=== PATIENT | male | born 1975 | race Hispanic/Latino ===

== ENCOUNTER 2017-12-14 15:36 | Emergency (ER) | payer BC, OTHER ==
[~2017-12-14] VITALS: Ht 185.4 cm; Wt 126.6 kg
[~2017-12-14 15:36] MED LIST: ESIDRIX25 MG PO; GLIMEPIRIDE2 MG PO; LEVOTHYROXINE100 MC1 IV; LEVOTHYROXINE75 MCG PO; LOVASTATIN40 MG PO; VERAPAMIL ER240 M1; ZESTRIL20 MG PO
[2017-12-14 16:18] LABS: BASOPHILS # (AUTO) 0.1 (0.0-0.1); BASOPHILS % 0.9 % (0.0-1.0); EOSINOPHILS # (AUTO) 0.1 (0.0-0.4); EOSINOPHILS % 2.2 % (0.0-6.0); HEMOGLOBIN 14.8 g/dL (14.0-18.0); LYMPHOCYTES # (AUTO) 1.9 (1.0-3.2); LYMPHOCYTES % 35.5 % (18.0-39.1); MEAN CORPUSCULAR HEMOGLOBIN 28.6 pg (28-32); MEAN CORPUSCULAR HGB CONC 32.9 g/dL (31-35); MEAN CORPUSCULAR VOLUME 86.9 fL (81-99); MONOCYTES # (AUTO) 0.6 (0.2-0.8); MONOCYTES % 11.2 % (4.4-11.3); NEUTROPHILS # (AUTO) 2.7 (2.1-6.9); NEUTROPHILS % 49.8 % (38.7-80.0); PLATELET COUNT 262 x10e3/uL (140-360); RED BLOOD COUNT 5.18 x10e6/uL (4.3-5.7); RED CELL DISTRIBUTION WIDTH 13.8 % (11.7-14.4)
[2017-12-14 16:23] LABS: INR 1.11; PROTHROMBIN TIME 13.5 seconds (11.9-14.5)
[2017-12-14 16:24] LABS: PARTIAL THROMBOPLASTIN TIME 24.9 seconds (23.8-35.5)
[2017-12-14 16:30] LABS: ALBUMIN 4.1 g/dL (3.5-5.0); ANION GAP 14.2 mmol/L (8-16); CALCIUM 9.9 mg/dL (8.4-10.2); CREATININE, SERUM 1.85 mg/dL (0.72-1.25); POTASSIUM 4.2 mmol/L (3.5-5.1)
[2017-12-14 16:36] LABS: CREATINE KINASE MB 2.8 ng/mL (0-5.0)
--- NOTE | 2017-12-14 17:35 | Diagnostic Imaging Report ---
EXAMINATION: CHEST SINGLE (PORTABLE) INDICATION: CHEST PAIN COMPARISON: None FINDINGS: TUBES and LINES: None. LUNGS: Lungs are well inflated. Lungs are clear. There is no evidence of pneumonia or pulmonary edema. PLEURA: No pleural effusion or pneumothorax. HEART AND MEDIASTINUM: The cardiac silhouette is mildly enlarged. BONES AND SOFT TISSUES: No acute osseous lesion. Soft tissues are unremarkable. UPPER ABDOMEN: No free air under the diaphragm. IMPRESSION: No acute thoracic abnormality. Signed by: Dr. Ronna Morales M.D. on 12/14/2017 5:32 PM
[2017-12-14 17:42] LABS: CLARITY,URINE CLEAR (CLEAR); COLOR,URINE YELLOW (YELLOW)
[2017-12-14 17:43] LABS: BILIRUBIN,URINE NEGATIVE (NEGATIVE); KETONES,URINE NEGATIVE (NEGATIVE); LEUKOCYTE ESTERASE ,URINE NEGATIVE (NEGATIVE); NITRITE,URINE NEGATIVE (NEGATIVE); PROTEIN,URINE DIPSTICK 2+ (NEGATIVE); URINE UROBILINOGEN 0.2 mg/dL (0.2 - 1)
[2017-12-14 17:52] LABS: EPITHELIAL CELLS,URINE MODERATE /LPF
[2017-12-14 17:54] LABS: RBC,URINE 0-5 /HPF (0-5); WBC,URINE (MAN) 0-5 /HPF (0-5)
== END 2017-12-14 19:25 | disposition home or self-care (01) ==
LOC: ER 15:36
DX: R07.89 Other chest pain (principal); N18.3 Chronic kidney disease, stage 3 (moderate); I10 Essential (primary) hypertension; E78.5 Hyperlipidemia, unspecified
CPT/HCPCS: 36415; 71045; 80053; 81001; 82550; 82553; 83880; 84484; 85025; 85610; 85730; 93005; 99284

== ENCOUNTER 2023-12-09 23:05 | Inpatient (IN) | payer SELFPAY ==
[~2023-12-09] VITALS: Ht 185.4 cm; Wt 126.6 kg
[~2023-12-09 23:05] MED LIST changes: +METOPROLOL TAR100 MG PO; +ULTRAM 50MG50 MG PO
[2023-12-10] VITALS (9 sets, daily range): BP systolic 131–168; BP diastolic 86–101; PULSE 53–66; RESP 18–20; TEMP 97.6–98.7; O2SAT 96–100
[2023-12-10 00:29] LABS: BASOPHILS # (AUTO) 0.1 (0.0-0.1); BASOPHILS % 0.9 % (0.0-1.0); EOSINOPHILS # (AUTO) 0.2 (0.0-0.4); EOSINOPHILS % 3.1 % (0.0-6.0); HEMATOCRIT 40.7 % (38.2-49.6); HEMOGLOBIN 14.7 g/dL (14.0-18.0); LYMPHOCYTES # (AUTO) 1.7 (1.0-3.2); LYMPHOCYTES % 23.4 % (18.0-39.1); MEAN CORPUSCULAR HEMOGLOBIN 31.3 pg (28-32); MEAN CORPUSCULAR HGB CONC 36.1 g/dL (31-35); MEAN CORPUSCULAR VOLUME 86.8 fL (81-99); MONOCYTES # (AUTO) 0.4 (0.2-0.8); NEUTROPHILS # (AUTO) 4.9 (2.1-6.9); NEUTROPHILS % 66.2 % (38.7-80.0); PLATELET COUNT 222 x10e3/uL (140-360); RED BLOOD COUNT 4.69 x10e6/uL (4.3-5.7); RED CELL DISTRIBUTION WIDTH 13.9 % (11.7-14.4); WHITE BLOOD COUNT 7.39 x10e3/uL (4.8-10.8)
[2023-12-10 01:00] LABS: ALBUMIN 3.6 g/dL (3.5-5.0); ALBUMIN/GLOBULIN RATIO 0.6 (0.8-2.0); ANION GAP 23.7 mmol/L (8-16); BILIRUBIN,TOTAL 0.3 mg/dL (0.2-1.2); CALCIUM 9.7 mg/dL (8.4-10.2); CREATININE, SERUM 2.91 mg/dL (0.72-1.25); POTASSIUM 3.7 mmol/L (3.5-5.1); TOTAL PROTEIN 9.6 g/dL (6.5-8.1)
[2023-12-10 01:07] LABS: TROPONIN I 0.126 ng/mL (0-0.300)
[2023-12-10 03:22] LABS: ABG HCO3 26 mmol/L (22-26); ABG PCO2 42 mmHg (35-45); ABG PH 7.39 (7.35-7.45); ABG PO2 85 mmHg (80-105); ABG TCO2 27
[2023-12-10] MEDS ORDERED: Morphine 4mg INJECTION 4 MG/ML INJ IV PRN (05:00)
[2023-12-10] MEDS ORDERED: ONDANSETRON HCL INJ 2MG/ML 2ML 2 MG/ML VIAL IV PRN (05:00)
[2023-12-10] MEDS: INSULIN REGULAR, HUMAN 100 UNIT/1 ML IV STA (05:06)
[2023-12-10 08:50] LABS: TROPONIN I 0.12 ng/mL (0-0.300)
[2023-12-10] MEDS: ONDANSETRON HCL INJ 2MG/ML 2ML 2 MG/ML VIAL IV PRN (12:18)
[2023-12-10] MEDS ORDERED: DEXTROSE 50% SYRINGE 50 ML IV PRN (12:45)
[2023-12-10] MEDS: INSULIN LISPRO 100 UNIT/1 ML 3ML VIAL SQ SCH (12:50)
[2023-12-10] MEDS ORDERED: ACETAMINOPHEN 325 MG TAB PO PRN (13:15)
[2023-12-10 14:27] LABS: ALBUMIN 3.3 g/dL (3.5-5.0); ALBUMIN/GLOBULIN RATIO 0.8 (0.8-2.0); ANION GAP 18.1 mmol/L (8-16); BILIRUBIN,TOTAL 0.5 mg/dL (0.2-1.2); CALCIUM 9.3 mg/dL (8.4-10.2); CREATININE, SERUM 2.56 mg/dL (0.72-1.25); TOTAL PROTEIN 7.4 g/dL (6.5-8.1)
[2023-12-10 14:29] LABS: POTASSIUM 3.1 mmol/L (3.5-5.1)
[2023-12-10 14:31] LABS: TROPONIN I 0.123 ng/mL (0-0.300)
[2023-12-10] MEDS: GLIMEPIRIDE 2 MG TAB PO SCH (15:34)
[2023-12-10] MEDS: SODIUM CHLORIDE 0.9% 1000ML 1,000 ML IV SCH (15:34)
[2023-12-10] MEDS: METOPROLOL TARTRATE 50 MG TAB PO SCH (15:35)
[2023-12-10] MEDS: POTASSIUM CHLORIDE 10MEQ EA PO ONE (18:25)
[2023-12-10] MEDS: ATORVASTATIN 40 MG TAB PO SCH (21:06)
[2023-12-10] MEDS: INSULIN GLARGINE 100 UNITS/ML VIAL SQ SCH (21:16)
[2023-12-11] VITALS: BP 141/87; PULSE 66; RESP 20; TEMP 98; O2SAT 99
[2023-12-11 04:00] VITALS: BP 158/99; PULSE 52; RESP 20; TEMP 98.1; O2SAT 99
[2023-12-11 05:37] LABS: BASOPHILS % 0.5 % (0.0-1.0); EOSINOPHILS # (AUTO) 0.2 (0.0-0.4); EOSINOPHILS % 2.4 % (0.0-6.0); HEMATOCRIT 38.8 % (38.2-49.6); LYMPHOCYTES # (AUTO) 2.1 (1.0-3.2); LYMPHOCYTES % 26.6 % (18.0-39.1); MEAN CORPUSCULAR HEMOGLOBIN 29.7 pg (28-32); MEAN CORPUSCULAR HGB CONC 33.5 g/dL (31-35); MEAN CORPUSCULAR VOLUME 88.6 fL (81-99); MONOCYTES # (AUTO) 0.5 (0.2-0.8); MONOCYTES % 6.4 % (4.4-11.3); NEUTROPHILS % 63.7 % (38.7-80.0); PLATELET COUNT 191 x10e3/uL (140-360); RED BLOOD COUNT 4.38 x10e6/uL (4.3-5.7); WHITE BLOOD COUNT 7.87 x10e3/uL (4.8-10.8)
[2023-12-11 06:14] LABS: ALBUMIN 3.1 g/dL (3.5-5.0); ALBUMIN/GLOBULIN RATIO 0.8 (0.8-2.0); BILIRUBIN,TOTAL 0.4 mg/dL (0.2-1.2); CREATININE, SERUM 2.36 mg/dL (0.72-1.25); TOTAL PROTEIN 7.1 g/dL (6.5-8.1)
[2023-12-11 06:33] LABS: CHOL/HDL RATIO 12.2 (3.9-4.7); CHOLESTEROL 377 MD/DL (0-199); HDL CHOLESTEROL 31 MG/DL (40-60)
[2023-12-11 06:44] LABS: TROPONIN I 0.101 ng/mL (0-0.300)
[2023-12-11 06:52] LABS: TRIGLYCERIDES 1526 MG/DL (0-149)
[2023-12-11 07:31] LABS: THYROID STIMULATING HORMONE 123.148 uIU/mL (0.350-4.940)
[2023-12-11 08:00] VITALS: BP 151/88; PULSE 57; RESP 18; TEMP 97.9; O2SAT 100
[2023-12-11] MEDS: CLOPIDOGREL BISULFATE 75 MG TAB PO SCH (08:41)
[2023-12-11 11:49] VITALS: BP 144/84; PULSE 54; RESP 16; TEMP 98.1; O2SAT 99
[2023-12-11] MEDS: POTASSIUM CHLORIDE 10MEQ EA PO ONE (12:02)
[2023-12-11] MEDS ORDERED: GLIMEPIRIDE2 MG PO (12:07)
[2023-12-11] MEDS ORDERED: GEMFIBROZIL600 MG PO (12:07)
[2023-12-11] MEDS ORDERED: SYNTHROID125 MCG PO (12:07)
[2023-12-11] MEDS ORDERED: ATORVASTATIN CA40 MG PO (12:07)
[2023-12-11] MEDS ORDERED: ONDANSETRON HCL 4 MG ORAL DISINTEGRATING TAB PO PRN (15:30)
[2023-12-11] MEDS ORDERED: GEMFIBROZIL 600 MG TAB PO SCH (16:30)
[2023-12-11] MEDS ORDERED: ATORVASTATIN 40 MG TAB PO SCH (21:00)
[2023-12-12] MEDS ORDERED: LEVOTHYROXINE SODIUM 125 MCG TAB PO SCH (06:00)
== END 2023-12-11 15:58 | disposition home or self-care (01) | DRG 641 ==
LOC: ER 23:10 → ERHOLD 12-10 04:54 → MED/SURG2 12-10 06:04
PROVIDERS: ADMIT Internal Medicine; ATTEND Internal Medicine
DX: E86.0 Dehydration (principal); N17.9 Acute kidney failure, unspecified; E87.1 Hypo-osmolality and hyponatremia; E03.9 Hypothyroidism, unspecified; E11.65 Type 2 diabetes mellitus with hyperglycemia; R53.1 Weakness; R42 Dizziness and giddiness; I25.10 Atherosclerotic heart disease of native coronary artery without angina pectoris; I12.9 Hypertensive chronic kidney disease with stage 1 through stage 4 chronic kidney disease, or unspecified chronic kidney disease; E11.22 Type 2 diabetes mellitus with diabetic chronic kidney disease; N18.30 Chronic kidney disease, stage 3 unspecified; Z79.84 Long term (current) use of oral hypoglycemic drugs; E78.00 Pure hypercholesterolemia, unspecified; E66.9 Obesity, unspecified; Z68.36 Body mass index [BMI] 36.0-36.9, adult; Z11.52 Encounter for screening for COVID-19; Z91.148 Patient's other noncompliance with medication regimen for other reason; Z59.7 Insufficient social insurance and welfare support; Z71.81 Spiritual or religious counseling; Z86.73 Personal history of transient ischemic attack (TIA), and cerebral infarction without residual deficits; Z79.899 Other long term (current) drug therapy
CPT/HCPCS: 36415; 36600; 70450; 70551; 71045; 80053; 80061; 82550; 82805; 82948; 83036; 83690; 83880; 84443; 84484; 85025; 87400; 93005; 93306; 96372; 99284; J2405; J7030; U0002

== ENCOUNTER → 2024-12-15 | Outpatient (REF) | payer OTHER ==
[~2024-12-15] MED LIST changes: +ATORVASTATIN CA40 MG PO; +GEMFIBROZIL600 MG PO; +SYNTHROID125 MCG PO
== END ==
LOC: RAD 09:35
PROVIDERS: ATTEND Family Medicine
DX: M75.92 Shoulder lesion, unspecified, left shoulder (principal)